=== PATIENT | female | born 1995 | race Caucasian/White ===

== ENCOUNTER 2017-05-04 13:21 | Emergency (ER) | payer BC ==
[2017-05-04 14:16] VITALS: BP 119/67
--- NOTE | 2017-05-04 14:25 | ER Document Report ---
ED GI/ - General Chief Complaint: Pain With Urination Stated Complaint: FLANK PAIN Time Seen by Provider: 05/04/17 14:20 Mode of Arrival: Ambulatory Information source: Patient Notes: Pt is a 22 year old female with 2 days of dysuria. She started using AZO yesterday which usually helps. Patient states that she usually gets very bad urinary tract infections. She admits to some mild lower abdominal pain.She has been drinking plenty of water but has not been helping. She admits to left flank pain. She denies any nausea, vomiting, diarrhea. TRAVEL OUTSIDE OF THE [place] IN LAST 30 DAYS: No - Related Data Allergies/Adverse Reactions: No Known Allergies Allergy (Unverified 05/04/17 14:19) Past Medical History - General Information source: Patient - Social History Smoking Status: Never Smoker Chew tobacco use (# tins/day): No Frequency of alcohol use: Rare Drug Abuse: Marijuana Family History: Reviewed & Not Pertinent Patient has suicidal ideation: No Patient has homicidal ideation: No Renal/ Medical History: Denies: Hx Peritoneal Dialysis Surgical Hx: Negative Review of Systems - Review of Systems Constitutional: No symptoms reported EENT: No symptoms reported Cardiovascular: No symptoms reported Respiratory: No symptoms reported Gastrointestinal: No symptoms reported Genitourinary: See HPI Female Genitourinary: No symptoms reported Musculoskeletal: No symptoms reported Skin: No symptoms reported Hematologic/Lymphatic: No symptoms reported Neurological/Psychological: No symptoms reported Physical Exam - Vital signs Vitals: Temp Pulse Resp BP Pulse Ox 98.9 F 62 16 119/67 98 05/04/17 14:12 05/04/17 14:12 05/04/17 14:12 05/04/17 14:12 05/04/17 14:12 - Notes Notes: PHYSICAL EXAMINATION: GENERAL: Uncomfortable appearing, but in no acute distress. HEAD: Atraumatic, normocephalic. EYES: Pupils equal round and reactive to light, extraocular movements intact, sclera anicteric, conjunctiva are normal. NECK: Normal range of motion, supple without lymphadenopathy LUNGS: CTAB and equal. No wheezes rales or rhonchi. HEART: Regular rate and rhythm without murmurs ABDOMEN: Soft, mild suprapubic tenderness. No guarding, no rebound BACK: no vertebral tenderness, normal ROM GI/: mild left CVA tenderness EXTREMITIES: Normal range of motion, no pitting edema. No cyanosis. NEUROLOGICAL: Cranial nerves grossly intact. Normal sensory/motor exams. PSYCH: Normal mood, normal affect. SKIN: Warm, Dry, normal turgor, no rashes or lesions noted Course - Re-evaluation Re-evalutation: 05/04/17 18:41 Urinalysis was positive for blood, nitrites, leukocytes and 100 white blood cells. Will treat patient with antibiotics and provide her with Pyridium. She is afebrile here with normal vital signs, not tachycardic. 05/04/17 18:41 - Vital Signs Vital signs: Temp Pulse Resp BP Pulse Ox 98.9 F 62 16 119/67 98 05/04/17 14:12 05/04/17 14:12 05/04/17 14:12 05/04/17 14:12 05/04/17 14:12 - Laboratory Laboratory results interpreted by me: 05/04/17 14:25 Urine Protein 30 H Urine Blood MODERATE H Urine Nitrite POSITIVE H Urine Urobilinogen 4.0 H Ur Leukocyte Esterase TRACE H Discharge - Discharge Clinical Impression: UTI (urinary tract infection) Qualifiers: Urinary tract infection type: acute pyelonephritis Qualified Code(s): N10 - Acute pyelonephritis Condition: Stable Disposition: HOME, SELF-CARE Instructions: Urinary Tract Infection ([facility]) Additional Instructions: Please drink plenty of fluids, please return with worsening symptoms. Prescriptions: Ciprofloxacin HCl [Cipro 500 mg Tablet] 500 mg PO BID #20 tablet Phenazopyridine HCl [Pyridium 200 mg Tablet] 200 mg PO TID #30 tablet
[2017-05-04 14:50] LABS: APPEARANCE,URINE CLEAR; BILIRUBIN,URINE NEGATIVE (NEGATIVE); GLUCOSE, URINE NEGATIVE (NEGATIVE); KETONES,URINE NEGATIVE (NEGATIVE); LEUKOCYTE ESTERASE,URINE TRACE (NEGATIVE); NITRITE,URINE POSITIVE (NEGATIVE); PROTEIN,URINE 30 mg/dL (NEGATIVE); URINE SPECIFIC GRAVITY 1.011
[2017-05-04] MEDS ORDERED: HYDROCODONE/ACETAMINOPHEN 5-325 MG 6 TAB/DSPK PO PRN ×2 (15:20→15:57)
== END 2017-05-04 15:31 | disposition home or self-care (01) ==
LOC: ER 13:21
DX: N10 Acute pyelonephritis (principal)
CPT/HCPCS: 81001; 81025; 99284